=== PATIENT | male | born 1995 | race Caucasian/White ===

== ENCOUNTER 2017-03-10 12:56 | Inpatient (IN) | payer BC, OTHER ==
[~2017-03-10] VITALS: Ht 188 cm; Wt 78.5 kg
[2017-03-10 13:48] LABS: *AMPHETAMINE, URINE NEGATIVE (NEGATIVE); *BARBITURATE, URINE NEGATIVE (NEGATIVE); *CANNABINOID, URINE NEGATIVE (NEGATIVE); *COCCAINE, URINE POSITIVE (NEGATIVE); *OPIATE, URINE NEGATIVE (NEGATIVE); *PHENCYCLIDINE SCREEN,URINE NEGATIVE (NEGATIVE)
[2017-03-10] MEDS ORDERED: ESCI10TA PO (13:52)
[2017-03-10] MEDS ORDERED: LAMO100T PO (13:52)
[2017-03-10 14:00] VITALS: BP 141/79
--- NOTE | 2017-03-10 15:15 | NUR ---
PRE ASSESSMENT: PT IS A 21 YO MALE. A/O X4. STEADY GAIT. NKA. NO SZ HISTORY. HTN BUT NO MEDS. HX OF HTN AND DEPRESSION. HE TAKES LEXAPRO AND LAMICTAL WHICH HE BROUGHT. PT IS STABLE AND ABLE TO COME TO UNIT.
[2017-03-10] MEDS ORDERED: MAGNESIUM HYDROXIDE 30 ML LIQUID UDC PO PRN (15:30)
[2017-03-10] MEDS ORDERED: DICYCLOMINE HCL 20 MG TABLET PO PRN (15:30)
[2017-03-10] MEDS ORDERED: ACETAMINOPHEN 325 MG TABLET PO PRN (15:30)
[2017-03-10] MEDS ORDERED: HYDROXYZINE PAMOATE 25 MG CAPSULE PO PRN (15:30)
[2017-03-10] MEDS ORDERED: MAG HYDROX/AL HYDROX/SIMETH 30 ML LIQUID UDC PO PRN (15:30)
[2017-03-10] MEDS ORDERED: IBUPROFEN 600 MG TABLET PO PRN (15:30)
[2017-03-10] MEDS ORDERED: MIRALAX 17 GM POWD.PACK PO PRN (15:30)
[2017-03-10] MEDS ORDERED: ONDANSETRON 4 MG/2 ML VIAL IM PRN (15:30)
[2017-03-10] MEDS ORDERED: ONDANSETRON ODT 4 MG TAB.RAPDIS SL PRN (15:30)
[2017-03-10] MEDS ORDERED: diphenhydrAMINE 50 MG CAPSULE PO PRN (15:30)
[2017-03-10] MEDS ORDERED: CLONIDINE HCL 0.1 MG TABLET PO PRN (15:30)
[2017-03-10] MEDS ORDERED: LOPERAMIDE HCL 2 MG CAPSULE PO PRN ×2 (15:30)
[2017-03-10] MEDS ORDERED: BUPRENORPHINE HCL 2 MG TAB.SUBL SL PRN (15:30)
[2017-03-10] MEDS ORDERED: METHOCARBAMOL 750 MG TABLET PO PRN (15:30)
--- NOTE | 2017-03-10 15:35 | NUR ---
ADMISSION: A 21 Y O MALE ADMITTED FOR MEDICALLY SUPERVISED DETOX OF OPIATES PT REPORTS HE HAS BEEN USING 60 MG OF OXYCONTIN DAILY PO X 2 WEEKS. LAST USED 03/08. HE USED SUBOXONE X 1 (8MG) YESTERDAY. HE STATES HE CANNOT STOP USING ON HIS OWN. HE ALSO REPORTS USING COCAINE IV DAILY 1/2 GRAM DAILY X 3 MONTHS.LAST USED LAST NIGHT. HE STATES HE HAS BEEN STEALING TO SUPPORT HIS HABIT AND HURTING THE PEOPLE THAT LOVE HIM. HE REPORTS BEING AT [facility] 9 MONTHS AGO AND STAYED FOR ONE MONTH. HE STAYED CLEAN FOR A TOTAL OF 3 MONTHS. HE REPORTS A HX OF HTN AND DEPRESSION. HE BROUGHT LEXAPRO AND LAMICTAL. HE DENIES HAVING A PCP. HE DENIES S/I AND H/I. SKIN WARM DRY AND INTACT. ORIENTED PT TO STAFF AND UNIT. ENCOURAGED INCREASED FLUIDS TO ASSIST IN FACILITATING DETOX PROCESS. EDUCATED PT ON MEDICATIONS AND SIDE EFFECTS. WILL PROVIDE SAFE AND SUPPORTIVE ENVIRONMENT. Addendum: 03/10/17 at 1733 by MEGGAN CUEVA RN PT DENIES S/S OF W/D AT TIME OF ADMISSION.
[2017-03-10 16:00] VITALS: BP 142/63
--- NOTE | 2017-03-10 18:44 | NUR ---
END OF SHIFT: NEWLY ADMITTED PT IS NOT REPORTING S/S OF W/D AT THIS TIME. HE IS INTERACTING WITH PEERS. PRNS AVAILABLE IF NEEDED FOR S/S OF W/D . WILL PASS SHIFT REPORT TO ONCOMING NIGHT NURSE.
--- NOTE | 2017-03-10 19:12 | NUR ---
Start of shift note Received report from day shift nurse. Pt is a 21 yo male, A+Ox4, presenting to [facility] for Opiate/Cocaine dependence. Pt has NKA, is on Full code status, and on Regular diet. Pt is on Fall precautions. Pt has HX of HTN and depression. Pt is on PRN medications, tolerated well. No s/s of distress noted at this time. Respirations even and unlabored. Will continue to monitor.
[2017-03-10 19:56] LABS: ETHANOL < 3 MG/DL (0-0)
[2017-03-10 19:57] LABS: ALANINE AMINOTRANSFERASE 21 U/L (16-63); ALKALINE PHOSPHATASE 89 U/L (50-136); ASPARTATE AMINOTRANSFERASE 15 U/L (15-37); BILIRUBIN,TOTAL 0.3 mg/dL (0.2-1.0); CARBON DIOXIDE 25 mmol/L (21-32); CHLORIDE 102 mmol/L (98-107); CREATININE 1.4 mg/dL (0.6-1.3); GLUCOSE 121 mg/dL (74-106); POTASSIUM 4.2 mmol/L (3.5-5.1); TOTAL PROTEIN, SERUM 7.1 g/dL (6.4-8.2); UREA NITROGEN, BLOOD 17 mg/dL (7-18)
[2017-03-10 20:05] LABS: THYROID STIMULATING HORMONE 0.475 mIU/mL (0.358-3.740)
[2017-03-10 20:17] LABS: BASOPHILS # (AUTO) 0.1 K/uL (0.0-8.0); BASOPHILS % (AUTO) 0.6 % (0.0-2.0); EOSINOPHILS # (AUTO) 0.4 K/uL (0.0-0.7); EOSINOPHILS % (AUTO) 4.5 % (0.0-7.0); HEMATOCRIT 43.4 % (40-50); HEMOGLOBIN 14.9 G/DL (14.0-18.0); LYMPHOCYTES # (AUTO) 3.1 K/UL (0.8-4.8); LYMPHOCYTES % (AUTO) 36.8 % (20.5-51.5); MEAN CORPUSCULAR HGB CONC 34 g/dL (32.0-37.0); MEAN CORPUSCULAR VOLUME 90.4 FL (82.0-92.0); MONOCYTES # (AUTO) 0.6 K/UL (0.1-1.30); MONOCYTES % (AUTO) 6.9 % (0.0-11.0); NEUTROPHILS # (AUTO) 4.4 K/UL (1.8-8.9); NEUTROPHILS % (AUTO) 51.2 % (38.5-71.5); PLATELET COUNT (AUTO) 266 K/UL (150-450); WHITE BLOOD COUNT (AUTO) 8.6 K/UL (4.0-11.2)
[2017-03-10 20:25] VITALS: BP 139/68
[2017-03-10] MEDS: LAMOTRIGINE 100 MG TABLET PO SCH (21:58)
--- NOTE | 2017-03-10 21:58 | NUR ---
PRN Vistaril Pt c/o anxiety and requested for PRN Vistaril. Medication given and tolerated well. Will reassess within 1 HR. Will continue to monitor.
--- NOTE | 2017-03-10 22:45 | NUR ---
PRN Vistaril Reassessment Medication effective. No s/s of ASE/distress noted at this time. Respirations even and unlabored. Will continue to monitor.
[2017-03-11 00:15] VITALS: BP 134/72
[2017-03-11 04:31] VITALS: BP 129/75
--- NOTE | 2017-03-11 07:02 | NUR ---
End of shift note Pt is a 21 yo male, A+Ox4, presenting to [facility] for Opiate/Cocaine dependence. Pt has NKA, is on Full code status, and on Regular diet. Pt is on Fall precautions. Pt has HX of HTN and depression. Pt is on PRN medications, tolerated well. Pt was given PRN Vistaril @2158. Pt slept for a total of 6 HRS. Last COWS: 2 @0400. No s/s of distress noted at this time. Respirations even and unlabored. Will endorse to day shift nurse.
--- NOTE | 2017-03-11 07:54 | NUR ---
START OF SHIFT: RECEIVED PT A/O X 4. HE STATES HE SLEPT OK AND WOKE UP FEELING SICK THIS AM. HE REPORTS BODY ACHES,CHILLS,SWEATS,ANXIETY AND A RUNNY NOSE. COWS 12. PRN SUBUTEX GIVEN. WILL MONITOR EFFECTRIVENESS OF PRN. ENCOURAGED INCREASED FLUIDS TO ASSIST IN FACILITATING DETOX PROCESS. WILL CONTINUE TO MONITOR AND MANAGE S/S OF W/D.
[2017-03-11 08:02] VITALS: BP 130/84
[2017-03-11] MEDS ORDERED: TUBERCULIN,PURIF.PROT.DERIV. 5 TU/0.1 ML TEST ID ONE (09:00)
[2017-03-11 09:09] LABS: CREATININE 1.3 mg/dL (0.6-1.3); POTASSIUM 3.8 mmol/L (3.5-5.1)
[2017-03-11] MEDS: DOCUSATE SODIUM 250 MG CAPSULE PO SCH (09:19)
[2017-03-11] MEDS: LAMOTRIGINE 100 MG TABLET PO SCH ×2 (09:20→20:54)
[2017-03-11] MEDS: ESCITALOPRAM OXALATE 10 MG TABLET PO SCH (09:20)
[2017-03-11] MEDS: MULTIVITAMINS,THERAPEUTIC TABLET PO SCH (09:22)
[2017-03-11 12:00] VITALS: BP 132/76
[2017-03-11] MEDS ORDERED: IBUP-1955 PO (13:25)
[2017-03-11] MEDS ORDERED: DICY20TA28 PO (13:25)
[2017-03-11] MEDS ORDERED: CLON0.1T14 PO (13:25)
[2017-03-11] MEDS ORDERED: HYDR-3895 PO (13:25)
[2017-03-11] MEDS ORDERED: METH-406 PO (13:25)
--- NOTE | 2017-03-11 13:30 | NUR ---
Clinician encouraged client to attend afternoon group at 3:30. Client stated he is leaving tomorrow and just got here so would probably not attend.
[2017-03-11 16:00] VITALS: BP 125/65
[2017-03-11 17:19] LABS: *AMPHETAMINE, URINE NEGATIVE (NEGATIVE); *BARBITURATE, URINE NEGATIVE (NEGATIVE); *CANNABINOID, URINE NEGATIVE (NEGATIVE); *COCCAINE, URINE POSITIVE (NEGATIVE); *OPIATE, URINE NEGATIVE (NEGATIVE); *PHENCYCLIDINE SCREEN,URINE NEGATIVE (NEGATIVE)
--- NOTE | 2017-03-11 19:12 | NUR ---
END OF SHIFT: PT IS ON OBSERVATION AND PRNS AVAILABLE. SUBUTEX 4 MG SL GIVEN THIS AM FOR COWS 12 WHICH WAS EFFECTIVE. HE INTERACTED WITH PEERS AND ATTENDED GROUPS TODAY. DISCHARGE PLANNING IN PROGRESS FOR 03/12.UDS COLLECTED. WILL PASS SHIFT REPORT TO ONCOMING NIGHT NURSE.
--- NOTE | 2017-03-11 19:13 | NUR ---
Start of shift note Received report from day shift nurse. Pt is a 21 yo male, A+Ox4, presenting to [facility] for Opiate/Cocaine dependence. Pt has NKA, is on Full code status, and on Regular diet. Pt is on Fall precautions. Pt has HX of HTN and depression. Pt is on PRN medications, tolerated well, and is due for discharge tomorrow. No s/s of distress noted at this time. Respirations even and unlabored. Will continue to monitor.
[2017-03-11 20:18] VITALS: BP 128/77
[2017-03-12 00:50] VITALS: BP 124/79
[2017-03-12 04:28] VITALS: BP 128/83
--- NOTE | 2017-03-12 07:00 | NUR ---
End of shift note Pt is a 21 yo male, A+Ox4, presenting to [facility] for Opiate/Cocaine dependence. Pt has NKA, is on Full code status, and on Regular diet. Pt is on Fall precautions. Pt has HX of HTN and depression. Pt is on PRN medications, tolerated well, and is due for discharge today. Pt slept for a total of 5 HRS. Last COWS: 0 @0400. No s/s of distress noted at this time. Respirations even and unlabored. Will endorse to day shift nurse.
--- NOTE | 2017-03-12 07:05 | NUR ---
start of shift note: received pt from operation shift supervisor nurse, pt is in stable condition at this time, pt's last cows 2. pt slept for 5 hrs. pt is set for discharge, will assist pt in discharging and will continue to monitor pt for any changes.
[2017-03-12] MEDS: MULTIVITAMINS,THERAPEUTIC TABLET PO SCH (08:38)
[2017-03-12] MEDS: DOCUSATE SODIUM 250 MG CAPSULE PO SCH (08:38)
[2017-03-12] MEDS: ESCITALOPRAM OXALATE 10 MG TABLET PO SCH (08:38)
[2017-03-12] MEDS: LAMOTRIGINE 100 MG TABLET PO SCH (08:38)
[2017-03-12 09:00] VITALS: BP 141/70
--- NOTE | 2017-03-12 09:52 | NUR ---
end of shift note: pt left the unit in stable condition no s/s of pain or discomfort. pt teaching administered and pt verbalized understanding. pt's V/S WNL. Pt without withdrawal symptoms noted. all personal belongings returned. pt will be transferred to [facility] via private car.
[2017-03-13 07:06] LABS: HEPATITIS B SURFACE AG Negative (Negative)
== END 2017-03-12 09:54 | disposition other institution (70) | DRG 895 ==
LOC: SRC 12:56
PROVIDERS: ADMIT Internal Medicine; ATTEND Internal Medicine
PROC: HZ2ZZZZ Detoxification Services for Substance Abuse Treatment (ICD-10-PCS; principal; 2017-03-10)
PROC: HZ31ZZZ Individual Counseling for Substance Abuse Treatment, Behavioral (ICD-10-PCS; 2017-03-11)
DX: F11.23 Opioid dependence with withdrawal (principal); F14.10 Cocaine abuse, uncomplicated; Z81.8 Family history of other mental and behavioral disorders; N28.9 Disorder of kidney and ureter, unspecified; F17.210 Nicotine dependence, cigarettes, uncomplicated; F32.9 Major depressive disorder, single episode, unspecified
CPT/HCPCS: 36415; 71010; 80307; 80353; 83735; 84443; 85025; 86580; 86592; 86705; 86803; 87340; 87806; A4663; G0480